=== PATIENT | male | born 1960 | race Caucasian/White ===

== ENCOUNTER 2020-10-31 08:38 | Outpatient (CLI) | payer OTHER, MEDICAID, SELFPAY ==
--- NOTE | 2020-10-31 08:52 | ECG_ITS ---
[facility] Test Date: 2020-10-31 Pat Name: Sreedhar Contreras Department: Room: Gender: Male Marketing Outreach Coordinator: : 1960 Requested By: Linda Brand Order Number: [id number] Adamaris MD: Linda Brand M.D. Interpretive Statements NAME OF STUDY: LEXISCAN SESTAMIBI STRESS TEST INDICATION: Dyspnea PROCEDURE: At the baseline, the blood pressure was 120/84 mmHg with a heart rate of 85 bpm. The electrocardiogram showed normal sinus rhythm with PACs. Possible old septal infarct. Nonspecific T wave changes. The Lexiscan was infused over a period of 20 seconds. A total of 0.4 milligrams of Lexiscan was infused. The stress phase was continued for a total of 5 minutes. Heart rate at the end of the stress phase was 98 bpm with a blood pressure 112/75 mmHg. The EKG at the peak infusion revealed no significant ST-T wave changes. The study was terminated due to protocol completion. Sestamibi was injected 20 seconds after the Lexiscan infusion. Blood pressure at the end of the recovery phase was 115/69 mmHg with a heart rate of 95 beats per minute. CONCLUSION: 1. No significant EKG changes with the LexiScan infusion. 2. No LexiScan induced chest pain or cardiac arrhythmia. 3. Normal blood pressure and heart rate response. 4. Sestamibi/sestamibi perfusion scan pending; see separate report. Electronically Signed On 11-01-2020 16:35:50 CDT by Linda Brand M.D. [id number]
--- NOTE | 2020-10-31 08:53 | NMCV_ITS ---
NM alo perf SPECT r/s* [id number] Sreedhar Contreras Age: 60 Gender: M : 1960 Exam Date: 10/31/2020 09:51 Ordering Phys: Linda Brand MD ([email or web address]) Technologist: JULIA Vergara Exam Location: [facility] Indications: DYSPNEA STRESS TEST Please see separate stress test report in [facility] for full findings IMAGE PROTOCOL Rest/Stress 1 Lexiscan Day Radiopharmaceutical Dose (mCi) Administration Site Administered by Rest: Tc-99m 10.9 IV JULIA Seo Sestamibi Stress:Tc-99m 32.9 IV JULIA Vergara Sestamiaraceli Rest: 31-Oct-2020 60 Discovery 630 Stress: 31-Oct-2020 30 Discovery 630 0.4mg Lexiscan. Images obtained in supine and prone position. SPECT RESULTS Technical Quality: Excellent Raw Data Analysis: Normal Image Corrections: No attenuation or motion correction applied Summed Stress Score: 0 Summed Rest Score: 1 Summed Difference Score: 0 PERFUSION FINDINGS Small size perfusion abnormality of mild severity of mid inferoseptal wall on rest images with improved tracer uptake in stress images. This is suggestive of attenuation artifact. FUNCTIONAL RESULTS (calculated via Gated SPECT) Stress Image LV EF (%): 83 Stress EDV (mL):54 TID: 1.07 Stress ESV (mL):9 FUNCTIONAL FINDINGS: The left ventricle is normal in size. Transient Ischemia Dilatation of 1.1. There is normal left ventricular systolic function. The left ventricular ejection fraction is hyperdynamic with a value of 83%. There is normal left ventricular wall thickening with no regional wall motion abnormality. Normal end-diastolic end-systolic volumes. IMPRESSIONS 1. Myocardial perfusion imaging is normal. 2. Overall left ventricular systolic function is normal without regional wall motion abnormalities. 3. The left ventricular ejection fraction is hyperdynamic with a value of 83%. 4. Scan indicates low risk for cardiac events. Linda Brand MD (Electronically Signed) Final Date: 01 November 2020 16:56 S
[2020-10-31 09:08] VITALS: BMI 21.2
[2020-10-31] MEDS: regadenoson 0.4 Mg/5 ml Syringe IVP (11:09)
[2020-10-31 11:26] VITALS: BP 115/69; PULSE 96
== END 2020-10-31 08:39 | disposition home or self-care (01) ==
PROVIDERS: PCP Family Medicine; Visit Provider Internal Medicine Cardiovascular Disease
DX: R07.9 Chest pain, unspecified (principal)
CPT/HCPCS: 78452; 93017; A9500; J2785

== ENCOUNTER 2020-11-30 10:44 | Outpatient (CLI) | payer OTHER, MEDICAID, SELFPAY ==
--- NOTE | 2020-11-30 11:00 | CT_ITS ---
WS: [id number] Exam: CT chest wo con [id number] Date/Time of Exam: 11/30/2020 11:04 AM Reason For Exam: J43.9 - Emphysema, unspecified DLP: 774.[address] scans at [facility] use at least one of these dose optimization techniques: automat ed exposure control; mA and/or kV adjustment per patient size (includes targeted exams where dose is matched to clinical indication); or iterative reconstruction. The lungs are hyperinflated. Moderately advanced central lobar emphysematous changes noted most sever e in the upper lobes. There is apical pleural thickening and scarring. No suspicious pulmonary mass i dentified. No pleural or pericardial effusion. The airway is patent. No significant mediastinal or hi lar lymphadenopathy. The thoracic aorta is normal in caliber. Normal thyroid tissue. No axillary lymp hadenopathy. CT sections of the upper abdomen demonstrate partially visualized horseshoe kidney. No o ther significant finding. No destructive bone lesions. The chest wall is intact. CT/CT chest wo con [id number] IMPRESSION: 1. Moderately advanced central lobar emphysematous changes most severe in the u pper lobes. 2. No infiltrate, mass or lymphadenopathy in the chest. 3. Apical pleural thickening and scarring.
== END 2020-11-30 10:45 | disposition home or self-care (01) ==
PROVIDERS: PCP Family Medicine; Visit Provider Internal Medicine Cardiovascular Disease
DX: J43.9 Emphysema, unspecified (principal); R06.00 Dyspnea, unspecified
CPT/HCPCS: 71250

== ENCOUNTER 2020-12-14 08:37 | Outpatient (CLI) | payer OTHER, MEDICAID, SELFPAY ==
--- NOTE | 2020-12-14 08:45 | USCV_ITS ---
Sreedhar Contreras Age: 60 Gender: M : 1960 Exam Date: 12/14/2020 09:00 Ordering Phys: Linda Brand MD ([email or web address]) Technologist: Cecily Arredondo Exam Location: [facility] [place] Indication: paroxysmal AF BP: 117 / 78 HR: 77 Rhythm: Sinus Technical Quality: Adequate MEASUREMENTS (Male / Female) Normal Values 2D ECHO LV Diastolic Diameter PLAX 3.1 cm 4.2 - 5.9 / 3.9 - 5.3 cm LV Systolic Diameter PLAX 1.7 cm IVS Diastolic Thickness 1.0 cm 0.6 - 1.0 / 0.6 - 0.9 cm IVS Systolic Thickness 1.4 cm LVPW Diastolic Thickness 0.8 cm 0.6 - 1.0 / 0.6 - 0.9 cm LVPW Systolic Thickness 1.1 cm LVOT Diameter 2.1 cm LV Ejection Fraction 2D Teich 77.8 % LV Ejection Fraction MOD 2C 82.9 % LV Ejection Fraction 2C AL 82.9 % LA Diameter 2.8 cm LA Width 3.0 cm LA Height 3.8 cm RA Width 2.8 cm RA Height 4.6 cm Aorta at Sinotubular Diameter 3.4 cm DOPPLER AV Peak Velocity 86.0 cm/s LVOT Peak Velocity 77.0 cm/s AV Area Cont Eq vti 3.7 cm squared AV Area Cont Eq pk 3.1 cm squared MV Peak Velocity 71.0 cm/s MV Area PHT 3.7 cm squared Mitral E to A Ratio 1.5 MV E' Velocity 42.0 cm/s Mitral E to MV E' Ratio 6.8 Mitral E to LV E' Lateral Ratio 6.5 Mitral E to LV E' Septal Ratio 7.3 TR Peak Velocity 290.2 cm/s TR Peak Gradient 33.7 mmHg Right Atrial Pressure 3.0 mmHg Pulmonary Artery Systolic Pressu 36.7 mmHg PV Peak Velocity 50.0 cm/s RV Acceleration Time 0.1 s RV Ejection Time 0.3 s RV AcT/ET 0.4 FINDINGS Left Ventricle Normal left ventricular size, systolic function and wall thickness, with no regional wall motion abnormalities. Left ventricular ejection fraction is estimated at 70 %. Normal diastolic function. Right Ventricle Normal right ventricular size and systolic function. Right ventricular systolic pressure 46 mmHg. Right Atrium Normal right atrial size. Right atrial pressure estimated at 3 mmHg. Left Atrium Normal left atrial size. Mitral Valve Structurally normal mitral valve. No mitral valve stenosis. No mitral valve regurgitation. Aortic Valve Probably tricuspid aortic valve. No aortic valve stenosis. No aortic valve regurgitation. Tricuspid Valve Structurally normal tricuspid valve. Mild tricuspid valve regurgitation. Pulmonic Valve Structurally normal pulmonic valve. No pulmonary valve stenosis. No pulmonary valve regurgitation. Pericardium No pericardial effusion. Echo free space anterior to the right ventricle likely represents a fat pad. Aorta Normal-sized aortic root and ascending aorta. Normal-sized inferior vena cava with normal respiratory variation. CONCLUSIONS 1. Normal left ventricular size, systolic function and wall thickness, with no regional wall motion abnormalities. Left ventricular ejection fraction is estimated at 70 %. Normal diastolic function. 2. Normal right ventricular size and systolic function. 3. Mild tricuspid valve regurgitation. 4. Moderate pulmonary hypertension with pulmonary pressure estimated at 46 mmHg. 5. No prior similar studies to compare. Linda Brand MD (Electronically Signed) Final Date: 19 December 2020 12:43 S
== END 2020-12-14 08:38 | disposition home or self-care (01) ==
LOC: US 08:39
PROVIDERS: PCP Family Medicine; Visit Provider Internal Medicine Cardiovascular Disease
DX: I48.0 Paroxysmal atrial fibrillation (principal); I07.1 Rheumatic tricuspid insufficiency; I27.20 Pulmonary hypertension, unspecified
CPT/HCPCS: 93306; C8929

== ENCOUNTER 2021-01-17 09:57 | Outpatient (CLI) | payer MEDICAID, SELFPAY | END 2021-01-17 09:58 | disposition home or self-care (01) | LOC: SLEEP 10:01 | PROVIDERS: PCP Family Medicine; Visit Provider Internal Medicine Cardiovascular Disease | DX: G47.10 Hypersomnia, unspecified (principal) | CPT/HCPCS: G0399 ==

== ENCOUNTER → 2021-03-07 11:22 | Outpatient (BNVA) | payer MEDICAID, SELFPAY | PROVIDERS: PCP Family Medicine; Visit Provider Internal Medicine Cardiovascular Disease | DX: Z20.822 Contact with and (suspected) exposure to COVID-19 (principal); R06.00 Dyspnea, unspecified | CPT/HCPCS: 87635 ==

== ENCOUNTER 2021-03-13 09:23 | Outpatient (CLI) | payer MEDICAID, SELFPAY ==
--- NOTE | 2021-03-13 13:45 | PFTS_ITS ---
Date of Study:03/13/21 Date of Dictation: MECHANICS: Forced vital capacity (FVC) is reduced. Forced expiratory volume in one second (FEV1) is reduced. FEV1/FVC is reduced. FLOW VOLUME LOOP: Reduced flow at all lung volumes. There is flattening of the expiratory flow volume loop. No peak expiratory flow was observed. LUNG VOLUMES: Total lung capacity (TLC) is normal. Residual volume (RV) is increased. DIFFUSING CAPACITY FOR CARBON MONOXIDE: Severely reduced. INTERPRETATION: The prebronchodilator spirometry is consistent with very severe airflow obstruction. The postbronchodilator spirometry reveals evidence of paradoxical bronchospasm. Lung volumes are consistent with air trapping. Gas exchange (DLCO) is severely reduced. MTDD
== END 2021-03-13 09:24 | disposition home or self-care (01) ==
LOC: RT 09:25
PROVIDERS: PCP Family Medicine; Visit Provider Internal Medicine Pulmonary Disease
DX: R06.00 Dyspnea, unspecified (principal)
CPT/HCPCS: 94060; 94618; 94726; 94729; J7611

== ENCOUNTER → 2021-10-31 14:15 | Outpatient (BNVA) | payer MEDICAID, SELFPAY | PROVIDERS: PCP Family Medicine; Visit Provider Internal Medicine Cardiovascular Disease | DX: I48.0 Paroxysmal atrial fibrillation (principal); I47.1 Supraventricular tachycardia; I10 Essential (primary) hypertension; Z87.891 Personal history of nicotine dependence; J43.9 Emphysema, unspecified; G47.33 Obstructive sleep apnea (adult) (pediatric) | CPT/HCPCS: 99214 ==

== ENCOUNTER 2022-02-17 11:20 | Outpatient (CLI) | payer MEDICAID, SELFPAY ==
--- NOTE | 2022-02-17 11:15 | USCV_ITS ---
Sreedhar Contreras Age: 61 Gender: M : 1960 Exam Date: 02/17/2022 11:35 Ordering Phys: Linda Brand MD ([email or web address]) Technologist: Cecily Arrednodo Exam Location: [facility] [place] Indication: Shortness of breath BP: 128 / 88 HR: 99 Rhythm: Sinus Technical Quality: Suboptimal MEASUREMENTS (Male / Female) Normal Values 2D ECHO LV Diastolic Diameter PLAX 3.8 cm 4.2 - 5.9 / 3.9 - 5.3 cm LV Systolic Diameter PLAX 1.9 cm IVS Diastolic Thickness 1.0 cm 0.6 - 1.0 / 0.6 - 0.9 cm IVS Systolic Thickness 1.5 cm LVPW Diastolic Thickness 0.4 cm 0.6 - 1.0 / 0.6 - 0.9 cm LVPW Systolic Thickness 1.2 cm LVOT Diameter 2.2 cm LV Ejection Fraction 2D Teich 82.9 % LV Ejection Fraction MOD 2C 72.7 % LV Ejection Fraction 2C AL 73.8 % LA Diameter 2.5 cm LA Width 3.9 cm LA Height 3.3 cm RA Width 2.9 cm RA Height 4.3 cm Aorta at Sinotubular Diameter 3.7 cm IVC Diameter 1.3 cm M-MODE MV E Point Septal Separation 0.8 cm FINDINGS Left Ventricle Normal left ventricular size, systolic function and wall thickness, with no diagnostic regional wall motion abnormalities. Left ventricular ejection fraction is estimated at 65 %. Right Ventricle Normal right ventricular size and systolic function. Right Atrium Normal right atrial size. Left Atrium Normal left atrial size. Mitral Valve Structurally normal mitral valve. No mitral valve regurgitation. Aortic Valve Aortic valve not well visualized. Tricuspid Valve Structurally normal tricuspid valve. Trace tricuspid valve regurgitation. Pulmonic Valve Pulmonic valve not well visualized. Pericardium No pericardial effusion. Echo free space anterior to the right ventricle likely represents a fat pad. Aorta Normal size aortic root and proximal ascending aorta. IVC Normal IVC dimension with >50% respiratory change of the inferior vena cava. CONCLUSIONS 1. Normal left ventricular size, systolic function and wall thickness, with no diagnostic regional wall motion abnormalities. Left ventricular ejection fraction is estimated at 65 %. 2. Normal right ventricular size and systolic function. 3. There may not have been any significant change when compared to study dated 12/14/2020. Linda Brand MD (Electronically Signed) Final Date: 21 February 2022 08:17 S
== END 2022-02-17 11:21 | disposition home or self-care (01) ==
LOC: RAD 11:21
PROVIDERS: PCP Family Medicine; Visit Provider Internal Medicine Cardiovascular Disease
DX: R06.02 Shortness of breath (principal); I47.1 Supraventricular tachycardia; I48.0 Paroxysmal atrial fibrillation
CPT/HCPCS: 93308

== ENCOUNTER → 2022-04-18 10:10 | Outpatient (BNVA) | payer MEDICAID, SELFPAY | PROVIDERS: PCP Family Medicine; Visit Provider Internal Medicine Cardiovascular Disease | DX: I48.0 Paroxysmal atrial fibrillation (principal); I47.1 Supraventricular tachycardia; I10 Essential (primary) hypertension; J43.9 Emphysema, unspecified; G47.33 Obstructive sleep apnea (adult) (pediatric); Z87.891 Personal history of nicotine dependence; Z79.01 Long term (current) use of anticoagulants | CPT/HCPCS: 99214 ==

== ENCOUNTER → 2023-01-16 09:29 | Outpatient (BNVA) | payer MEDICAID, SELFPAY | PROVIDERS: PCP Family Medicine; Visit Provider Internal Medicine Cardiovascular Disease | DX: I48.0 Paroxysmal atrial fibrillation (principal); I47.1 Supraventricular tachycardia; I10 Essential (primary) hypertension; F17.200 Nicotine dependence, unspecified, uncomplicated; J43.9 Emphysema, unspecified; G47.33 Obstructive sleep apnea (adult) (pediatric); Z79.01 Long term (current) use of anticoagulants | CPT/HCPCS: 99214 ==